=== PATIENT | male | born 1980 | race Asian ===

== ENCOUNTER 2020-12-26 11:57 | Emergency (ER) | payer BC, OTHER ==
[~2020-12-26] VITALS: Ht 170.2 cm; Wt 73.0 kg
[2020-12-26] MEDS ORDERED: IBUPROFEN 600MG TABLET PO STA (12:14)
[2020-12-26] MEDS ORDERED: IBUP-2028 MT (13:10)
[2020-12-26 13:19] VITALS: BP 130/73
== END 2020-12-26 13:20 | disposition home or self-care (01) ==
LOC: EDBD 11:57 → ER 11:57
DX: R07.89 Other chest pain (principal)
CPT/HCPCS: 71045; 93005; 99283

== ENCOUNTER 2021-05-21 10:44 | Emergency (ER) | payer MEDICAID, OTHER ==
[~2021-05-21] VITALS: Ht 167.6 cm; Wt 72.0 kg
[~2021-05-21 10:44] MED LIST: IBUP-2028 MT
[2021-05-21] MEDS ORDERED: KETOROLAC 60MG/2ML VIAL IM ONE (11:45)
[2021-05-21 11:57] VITALS: BP 135/78
[2021-05-21 13:42] LABS: CLARITY URINE CLEAR (CLEAR); COLOR URINE YELLOW (YELLOW); KETONES URINE NEGATIVE (NEGATIVE); LEUKOCYTE ESTERASE URINE NEGATIVE (NEGATIVE); NITRITE URINE NEGATIVE (NEGATIVE); OCCULT BLOOD URINE NEGATIVE (NEGATIVE); PROTEIN URINE NEGATIVE (NEGATIVE); SPECIFIC GRAVITY URINE 1.019 (1.005-1.030); UROBILINOGEN URINE 0.2 E.U./dL (0.2-1.0)
== END 2021-05-21 14:03 ==
LOC: ER 10:44
DX: M79.641 Pain in right hand (principal); K92.0 Hematemesis; K62.5 Hemorrhage of anus and rectum; Z90.49 Acquired absence of other specified parts of digestive tract
CPT/HCPCS: 71045; 73130; 74176; 81003; 82270; 96372; 99285; J1885

== ENCOUNTER 2024-03-25 18:20 | Emergency (ER) | payer MEDICAID, OTHER ==
[~2024-03-25] VITALS: Ht 172.7 cm; Wt 75.0 kg
[2024-03-25 18:24] VITALS: O2SAT 100
[2024-03-25 18:28] VITALS: BP 113/64; PULSE 100; RESP 18; TEMP 98.7; O2SAT 97
== END 2024-03-25 20:56 | disposition left against medical advice (07) ==
LOC: ER 18:20
DX: R10.9 Unspecified abdominal pain (principal); Z53.21 Procedure and treatment not carried out due to patient leaving prior to being seen by health care provider

== ENCOUNTER 2024-03-27 10:02 | Emergency (ER) | payer OTHER ==
[~2024-03-27] VITALS: Ht 167.6 cm; Wt 74.0 kg
[2024-03-27 10:05] VITALS: O2SAT 100
[2024-03-27 11:04] VITALS: BP 144/71; PULSE 79; RESP 16
[2024-03-27] MEDS: MORPHINE SULFATE 4 MG/ML INJ (FOR IV/IM USE) IM ONE (11:04)
[2024-03-27 13:13] LABS: CLARITY URINE CLEAR (CLEAR); COLOR URINE DARK YELLOW (YELLOW); GLUCOSE URINE NEGATIVE (NEGATIVE); KETONES URINE TRACE (NEGATIVE); LEUKOCYTE ESTERASE URINE NEGATIVE (NEGATIVE); NITRITE URINE NEGATIVE (NEGATIVE); OCCULT BLOOD URINE 2+ (NEGATIVE); PROTEIN URINE NEGATIVE (NEGATIVE); SPECIFIC GRAVITY URINE 1.025 (1.005-1.030)
[2024-03-27 13:24] LABS: MUCUS URINE 3+ /lpf (NONE/TRACE); SQUAMOUS EPITHELIAL CELL URINE FEW /lpf (RARE/1+)
[2024-03-27 13:26] LABS: BACTERIA URINE TRACE; RBC URINE TNTC /hpf (0-2)
[2024-03-27] MEDS ORDERED: IBUP-2029 MT (13:56)
[2024-03-27] MEDS ORDERED: TAMS-11 MT (13:56)
[2024-03-27] MEDS ORDERED: T3 PO (13:56)
== END 2024-03-27 14:30 | disposition home or self-care (01) ==
LOC: ER 10:02
DX: N23 Unspecified renal colic (principal); E78.00 Pure hypercholesterolemia, unspecified; Z90.49 Acquired absence of other specified parts of digestive tract
CPT/HCPCS: 99285; 74176; 81003; 96372; J2270

== ENCOUNTER 2024-12-23 13:36 | Emergency (ER) | payer MEDICAID, OTHER ==
[~2024-12-23] VITALS: Ht 170.2 cm; Wt 87.0 kg
[~2024-12-23 13:36] MED LIST changes: +IBUP-2029 MT; +T3 PO; +TAMS-54 MT
[2024-12-23 13:40] VITALS: O2SAT 99
[2024-12-23] MEDS: OLANZAPINE 5MG TABLET ODT PO ONE (13:45)
[2024-12-23] MEDS ORDERED: LORAZEPAM 2MG/ML INJ IM ONE (14:45)
[2024-12-23] MEDS: LORAZEPAM 2MG/ML UD SYRINGE IM NR (15:30)
[2024-12-23] MEDS: DIPHENHYDRAMINE 50MG/ML VIAL IM ONE (15:31)
[2024-12-23] MEDS: HALOPERIDOL LACTATE 5MG/ML VIAL IM ONE (15:31)
[2024-12-23] MEDS: PANTOPRAZOLE 40MG DR TABLET PO ONE (15:31)
[2024-12-23] MEDS: LORAZEPAM 1MG TABLET PO ONE (15:50)
[2024-12-23 16:41] LABS: BASOPHILS % 0.8 % (0.0-2.0); EOSINOPHILS % 1.1 % (0.0-5.0); HEMATOCRIT. 40.4 % (42.0-52.0); HEMOGLOBIN. 13.4 g/dL (14.0-18.0); LYMPHOCYTES % 34.1 % (20.0-50.0); MEAN CORPUSCULAR HEMOGLOBIN 30.2 pg (28.0-32.0); MEAN CORPUSCULAR HGB CONC 33.2 g/dL (31.0-37.0); MEAN PLATELET VOLUME 8.2 fl (7.4-10.4); MONOCYTES % 9.5 % (2.0-8.0); NEUTROPHILS % 54.5 % (40.0-76.0); PLATELET 296 x1000/uL (130-400); RED BLOOD CELL COUNT 4.44 mill/uL (4.7-6.1); RED CELL DISTRIBUTION WIDTH 13.5 % (11.6-14.6); WHITE BLOOD COUNT 5.9 x1000/uL (4.5-11.0)
[2024-12-23 17:00] LABS: CARBON DIOXIDE 27 mEq/L (21-32); CHLORIDE 104 mEq/L (98-107); POTASSIUM 4.3 mEq/L (3.5-5.1); SODIUM 141 mEq/L (136-145)
[2024-12-23 17:01] LABS: CALCIUM 9.5 mg/dL (8.7-10.4)
[2024-12-23 17:05] LABS: CREATININE 1.1 mg/dL (0.6-1.3)
[2024-12-23 17:06] LABS: ETHANOL BLOOD < 10 mg/dL (<10); GLUCOSE 106 mg/dL (70-105); UREA NITROGEN BLOOD 12 mg/dL (9-23)
[2024-12-23 17:08] LABS: ACETAMINOPHEN < 2 ug/mL (10-30)
[2024-12-23 19:08] LABS: CLARITY URINE CLEAR (CLEAR); COLOR URINE YELLOW (YELLOW); GLUCOSE URINE NEGATIVE (NEGATIVE); KETONES URINE NEGATIVE (NEGATIVE); LEUKOCYTE ESTERASE URINE NEGATIVE (NEGATIVE); NITRITE URINE NEGATIVE (NEGATIVE); OCCULT BLOOD URINE NEGATIVE (NEGATIVE); PROTEIN URINE NEGATIVE (NEGATIVE); SPECIFIC GRAVITY URINE 1.021 (1.005-1.030)
[2024-12-23 19:28] LABS: *AMPHETAMINES SCREEN URINE PRESUMPTIVE POSITIVE (NEGATIVE); *BENZODIAZEPINES SCREEN URINE NEGATIVE (NEGATIVE)
[2024-12-23 19:29] LABS: *BARBITURATES SCREEN URINE NEGATIVE (NEGATIVE); *COCAINE SCREEN URINE NEGATIVE (NEGATIVE); CANNABINOID URINE SCREEN NEGATIVE (NEGATIVE); ECSTASY MDMA SCREEN URINE CONF.TEST INDICATED (NEGATIVE); METHADONE URINE SCREEN NEGATIVE (NEGATIVE); OPIATES URINE SCREEN NEGATIVE (NEGATIVE); PHENCYCLIDINE URINE SCREEN NEGATIVE (NEGATIVE)
[2024-12-24 14:14] VITALS: BP 105/83; PULSE 93; RESP 20; TEMP 36.7; O2SAT 97
== END 2024-12-24 14:40 ==
LOC: ER 13:36
DX: T14.91XA Suicide attempt, initial encounter (principal); F19.10 Other psychoactive substance abuse, uncomplicated; F32.A Depression, unspecified; F29 Unspecified psychosis not due to a substance or known physiological condition; Z79.899 Other long term (current) drug therapy; Z20.822 Contact with and (suspected) exposure to COVID-19; X83.8XXA Intentional self-harm by other specified means, initial encounter; Y93.89 Activity, other specified; Y92.89 Other specified places as the place of occurrence of the external cause; Y99.8 Other external cause status
CPT/HCPCS: 80305; 80048; 81003; 80307; 80329; 80320; 85025; 36415; 96372; 99285; 87426; J1200; J1630; Z7610; J2060; G0480